=== PATIENT | male | born 1955 | race Caucasian/White ===

== ENCOUNTER 2018-11-08 12:59 | Day surgery (SDC) | payer OTHER ==
[~2018-11-08] VITALS: Ht 172.7 cm; Wt 76.7 kg
[2018-11-08 13:50] VITALS: Ht 172.7 cm; Wt 76.7 kg
[2018-11-08] MEDS ORDERED: LIDOCAINE 4% SOLUTION 50 ML BTL ONE (14:12)
[2018-11-08 14:40] VITALS: BP 148/69; PULSE 82; RESP 18
[2018-11-08] MEDS ORDERED: MIDAZOLAM 1 MG/ML 2 ML INJ ONE ×2 (14:50→14:51)
[2018-11-08] MEDS ORDERED: FENTAnyl 50 MCG/ML VIAL ONE (14:51)
== END 2018-11-08 16:00 | disposition home or self-care (01) ==
LOC: GIL 12:59
PROVIDERS: ATTEND Internal Medicine
DX: Z12.11 Encounter for screening for malignant neoplasm of colon (principal); K64.9 Unspecified hemorrhoids; K29.00 Acute gastritis without bleeding; Z86.010 Personal history of colon polyps
CPT/HCPCS: 43239; 45378; 88305; 88312; J2250; J3010; Z7610